=== PATIENT | female | born 1985 | race African-American/Black ===

== ENCOUNTER 2024-04-22 21:27 | Emergency (ER) | payer OTHER ==
[2024-04-22 21:41] VITALS: O2SAT 100
--- NOTE | 2024-04-22 21:56 | ED Physician Documentation ---
PD HPI FEMALE - Stated complaint Stated Complaint: ABD PX/ROY - Chief complaint Chief Complaint: Abd Pain - History obtained from History obtained from: Patient - Additional information Additional information: 38-year-old woman with history of fibroids. She developed a gradual onset frontal headache today and then developed severe period cramps and some left- sided chest pain under her breast. She has cramps with her period but this is significantly worse than normal. The timing of her menses is normal as is the volume for her noting that she always has heavy menses. She tried some ibuprofe n at home that was modestly effective. Denies fevers or chills. She is sexually active. She is otherwise healthy with no history of cardiac disease. 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 - Past Surgical History Past Surgical History: No General: Appendectomy - Present Medications Home Medications: Ambulatory Orders Medication Instructions Recorded Confirmed Cholecalciferol (Vitamin D3) 125 mcg PO DAILY 04/22/24 04/22/24 [D3-5000] Ketorolac [Toradol] 10 mg PO Q6H PRN #20 tablet 04/22/24 buPROPion [Wellbutrin Xl] 150 mg PO DAILY 04/22/24 04/22/24 - Allergies Allergies/Adverse Reactions: Allergies Allergy/AdvReac Type Severity Reaction Status Date / Time No Known Drug Allergies Allergy Verified 04/22/24 21:40 - Social History Does the pt smoke?: No Smoking Status: Never smoker Does the pt drink ETOH?: Yes Does the pt have substance abuse?: No - Immunizations Immunizations are current?: Yes - POLST Patient has POLST: No PD ED PE NORMAL - Vitals Vital signs reviewed: Yes - General General: Alert and oriented X 3, No acute distress - HEENT HEENT: PERRL, EOMI, Pharynx benign - Neck Neck: Supple, no meningeal sign, No bony TTP - Cardiac Cardiac: RRR, No murmur - Respiratory Respiratory: No respiratory distress, Clear bilaterally - Abdomen Abdomen: Normal bowel sounds, Soft, Other (Mild left pelvic tenderness without surgical signs) - Back Back: No CVA TTP, No spinal TTP - Neuro Neuro: Alert and oriented X 3 Results - Vitals Vitals: Vital Signs - 24 hr 04/22/24 04/22/24 21:36 22:08 Temperature 36.4 C L Heart Rate 76 70 Respiratory 15 Rate Blood Pressure 134/80 H 137/90 H O2 Saturation 100 Oxygen O2 Source Room air - EKG (time done) 225 EKG releavant findings:: EKG personally interpreted by author of this note. Relevant findings are: Rate: Rate (enter#) (72) Rhythm: NSR [place]: Normal Intervals: Normal AL QRS: Normal Ischemia: Normal ST segments Computer interpretation: Agree with computer - Labs Labs: Laboratory Tests 04/22/24 04/22/24 04/22/24 22:00 22:00 22:43 WBC 7.4 RBC 4.36 Hgb 13.3 Hct 42.1 MCV 96.6 MCH 30.5 MCHC 31.6 L RDW 13.8 Plt Count 298 MPV 10.0 Neut # (Auto) 3.8 Lymph # (Auto) 2.9 [place] # (Auto) 0.5 Eos # (Auto) 0.1 Baso # (Auto) 0.0 Absolute Nucleated RBC 0.00 Nucleated RBC % 0.0 Sodium 138 Potassium 3.7 Chloride 104 Carbon Dioxide 27 Anion Gap 7.0 BUN 18 Creatinine 1.1 Estimated GFR (MDRD) 68 L Glucose 93 Calcium 9.5 Total Bilirubin 0.3 AST 19 ALT 15 Alkaline Phosphatase 59 Total Protein 8.0 Albumin 4.5 Globulin 3.5 Albumin/Globulin Ratio 1.3 Lipase 18 Urine Color YELLOW Urine Clarity CLEAR Urine pH 6.5 Ur Specific [place] 1.025 Urine Protein TRACE Urine Glucose (UA) NEGATIVE Urine Ketones NEGATIVE Urine Occult Blood LARGE H Urine Nitrite NEGATIVE Urine Bilirubin NEGATIVE Urine Urobilinogen 0.2 (NORMAL) Ur Leukocyte Esterase NEGATIVE Urine RBC 6-10 H Urine WBC 0-3 Ur Squamous Epith Cells FEW Squamous Urine Bacteria None Seen Ur Microscopic Review INDICATED Urine Culture Comments NOT INDICATED Urine HCG, Qual NEGATIVE PD Medical Decision Making - ED course ED course: She presents mostly with pelvic pain but also has a gradual onset nonconcerning headache without neck stiffness or symptoms of infection and some chest pain. EKG is nonischemic. After the administration of Toradol she was pain-free. She did want a prescription for that. Otherwise workup was notable for normal CBC, CMP, urinalysis and test save some hematuria likely due to ongoing menses. Advised to follow-up with the [facility] clinic for fibroid uterus. Low concern for serious etiology such as torsion given significant response to just Toradol for pain. Departure - Departure Disposition: 01 Home, Self Care Clinical Impression: Pelvic pain in female Condition: Good Record reviewed to determine appropriate education?: Yes Instructions: ED Pelvic Pain [facility] Prescriptions: Ketorolac [Toradol] 10 mg PO Q6H PRN #20 tablet PRN Reason: pain Comments: Likely that your pelvic pain is from your fibroid uterus. You are not and your labs were normal. You also had some chest pain and headache with this, the EKG was normal. 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 Return for new or worsening symptoms. Forms: PCP List, Activity restrictions
[2024-04-22] MEDS: KETOROLAC 15 MG/ML VIAL IVP STA (22:12)
[2024-04-22 22:15] LABS: BASOPHILS % (AUTO) 0.5 %; EOSINOPHILS # (AUTO) 0.1 10^3/uL (0.0-0.7); EOSINOPHILS % (AUTO) 1.9 %; HCT - HEMATOCRIT 42.1 % (37.0-47.0); HGB - HEMOGLOBIN 13.3 g/dL (12.0-16.0); LYMPHOCYTES # (AUTO) 2.9 10^3/uL (1.5-3.5); LYMPHOCYTES % (AUTO) 39.8 %; MEAN CORPUSCULAR HEMOGLOBIN 30.5 pg (27.0-31.0); MEAN CORPUSCULAR HGB CONC 31.6 g/dL (32.0-36.0); MEAN CORPUSCULAR VOLUME 96.6 fL (81.0-99.0); MONOCYTES # (AUTO) 0.5 10^3/uL (0.0-1.0); MONOCYTES % (AUTO) 6.2 %; NEUTROPHILS # (AUTO) 3.8 10^3/uL (1.5-6.6); NEUTROPHILS % (AUTO) 51.3 %; PLT - PLATELET COUNT 298 10^3/uL (130-450); RED BLOOD COUNT 4.36 10^6/uL (4.20-5.40); RED CELL DISTRIBUTION WIDTH 13.8 % (12.0-15.0); WHITE BLOOD COUNT 7.4 x10^3/uL (4.8-10.8)
[2024-04-22 22:17] LABS: BILIRUBIN,URINE NEGATIVE (NEGATIVE); GLUCOSE, URINE (UA) NEGATIVE (NEGATIVE); KETONES,URINE (UA) NEGATIVE (NEGATIVE); LEUKOCYTE ESTERASE, URINE NEGATIVE (NEGATIVE); NITRITE,URINE NEGATIVE (NEGATIVE); OCCULT BLOOD,URINE LARGE (NEGATIVE); PH,URINE 6.5 PH (5.0-7.5); PROTEIN,URINE TRACE mg/dL (NEGATIVE); UROBILINOGEN,URINE 0.2 (NORMAL) E.U./dL (NORMAL)
[2024-04-22 22:18] LABS: CLARITY,URINE CLEAR (CLEAR)
[2024-04-22 22:19] LABS: HCG UR QUAL NEGATIVE
[2024-04-22 22:25] LABS: BACTERIA,URINE None Seen /HPF (None Seen); SQUAMOUS EPITHELIAL CELL,UR FEW Squamous (<= Few); WBC,URINE 0-3 /HPF (0-5)
[2024-04-22] MEDS: ONDANSETRON 4 MG/2 ML VIAL IVP STA (22:43)
[2024-04-22 23:04] LABS: ALBUMIN 4.5 g/dL (3.2-5.5); ALBUMIN/GLOBULIN RATIO 1.3 (1.0-2.2); BILIRUBIN,TOTAL 0.3 mg/dL (0.2-1.0); CALCIUM 9.5 mg/dL (8.5-10.3); CREATININE 1.1 mg/dL (0.6-1.3); POTASSIUM 3.7 mmol/L (3.5-4.5)
[2024-04-22 23:22] VITALS: BP 121/84
== END 2024-04-22 23:22 | disposition home or self-care (01) ==
LOC: ED 21:27
DX: R10.2 Pelvic and perineal pain (principal); R07.9 Chest pain, unspecified; R51.9 Headache, unspecified
CPT/HCPCS: 36415; 80053; 81001; 81003; 81025; 83690; 85025; 87086; 96374; 96375; 99284